=== PATIENT | female | born 1995 | race Asian ===

== ENCOUNTER → 2022-03-18 | Outpatient (REF) ==
[2022-03-19 06:08] LABS: RUBEOLA IgG ANTIBODY 18.2 AU/mL (Immune >16.4)
== END ==
LOC: M LAB 10:55
PROVIDERS: ATTEND Nurse Practitioner Adult Health
DX: Z02.1 Encounter for pre-employment examination (principal)

== ENCOUNTER 2022-09-02 14:48 | Emergency (ER) | payer OTHER ==
[~2022-09-02] VITALS: Ht 154.9 cm; Wt 75.3 kg
[2022-09-02 19:03] VITALS: BP 126/81; TEMP 99; O2SAT 100
== END 2022-09-02 19:23 | disposition home or self-care (01) ==
LOC: M ED 14:48
DX: M79.672 Pain in left foot (principal); F10.10 Alcohol abuse, uncomplicated